=== PATIENT | male | born 2000 | race Caucasian/White ===

== ENCOUNTER 2021-10-28 20:34 | Emergency (ER) | payer OTHER, BC ==
[2021-10-28] MEDS ORDERED: SODIUM CHLORIDE 0.9% 1,000 ML IV STA (20:44)
[2021-10-28] MEDS ORDERED: HYDROmorphone 0.5 MG/0.5 ML SYRINGE IVP STA (20:44)
[2021-10-28] MEDS ORDERED: ONDANSETRON 4 MG/2 ML VIAL IVP STA (20:44)
[2021-10-28 21:06] LABS: Basophils # (A) 0.1 k/uL (0-0.2); Basophils % (A) 1 %; Eosinophils # (A) 0.1 k/uL (0-0.7); Eosinophils % (A) 1 %; HCT 45.7 % (39.0-53.0); HGB 15.2 gm/dL (13.0-17.5); Lymphocytes # (A) 2.2 k/uL (1.0-4.8); Lymphocytes % (A) 23 %; MCH 30.4 pg (25.0-35.0); MCHC 33.3 g/dL (31.0-37.0); MCV 91.2 fL (80.0-100.0); Mean Platelet Volume 8.1; Monocytes # (A) 0.5 k/uL (0-1.0); Monocytes % (A) 5 %; Neutrophils # (A) 6.6 k/uL (1.3-7.7); Neutrophils % (A) 68 %; Platelet Count 196 k/uL (150-450); RBC 5.01 m/uL (4.30-5.90); RDW 11.7 % (11.5-15.5); WBC 9.7 k/uL (4.0-11.0)
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
[2021-10-28 21:16] LABS: Partial Thromboplastin Time 23.2 sec (22.0-30.0); Prothrombin Time 11.1 sec (9.0-12.0)
[2021-10-28 21:18] LABS: ALT 27 U/L (4-49); AST 43 U/L (17-59); African American GFR (CKD) >90 (>60 ml/min/1.73 sqM); Albumin 4.5 g/dL (3.5-5.0); Alcohol <10 mg/dL; Alkaline Phosphatase 64 U/L (38-126); Anion Gap 8 mmol/L; Blood Urea Nitrogen 14 mg/dL (9-20); Calcium 9.3 mg/dL (8.4-10.2); Carbon Dioxide 24 mmol/L (22-30); Chloride 106 mmol/L (98-107); Glucose 108 mg/dL (74-99); Non-African American GFR(CKD) >90 (>60 ml/min/1.73 sqM); Potassium 3.4 mmol/L (3.5-5.1); Sodium 138 mmol/L (137-145); Total Bilirubin 1.2 mg/dL (0.2-1.3); Total Protein 7.3 g/dL (6.3-8.2)
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
[2021-10-29 04:04] VITALS: BP 141/84; PULSE 70; RESP 16; TEMP 98
== END 2021-10-28 22:30 | disposition other institution (70) ==
LOC: EC 20:34
DX: S81.011A Laceration without foreign body, right knee, initial encounter (principal); S36.039A Unspecified laceration of spleen, initial encounter; S20.219A Contusion of unspecified front wall of thorax, initial encounter; S27.329A Contusion of lung, unspecified, initial encounter; J94.8 Other specified pleural conditions; R79.89 Other specified abnormal findings of blood chemistry; V89.2XXA Person injured in unspecified motor-vehicle accident, traffic, initial encounter; Y92.410 Unspecified street and highway as the place of occurrence of the external cause
CPT/HCPCS: 36415; 93005; 86900; 86901; 80053; 83605; 84484; 85025; 85610; 85730; 86850; 80320; 72170; 73562; 71045; 72125; 70450; 71260; 74177; 99291; 96374; 96375; J2405; J1170; Q9967

== ENCOUNTER → 2024-07-03 | Outpatient (CLI) | payer BC ==
--- NOTE | 2024-07-06 23:15 | CT ---
EXAMINATION TYPE: CT soft tissue neck w con DATE OF EXAM: 07/03/2024 5:56 PM COMPARISON: None. CLINICAL INDICATION: Male, 23 years old with history of R590 LOCALIZED ENLARGED LYMPH NODES, Enlarged lymph nodes mainly on left side x3 weeks. TECHNIQUE: Axial images at 3 mm thick sections. Reconstructed images in the coronal plane and sagitt al plane are reviewed. Contrast used:100ml mL of Isovue 300 with IV Contrast, (none if empty) Oral contrast used: (none if empty) CT DLP: 294.6 mGycm, Automated exposure control for dose reduction was used. FINDINGS: Limited CT sections are obtained the lung apices. The lung apices appear clear. CT neck: The torus tubarius and fossa of Rosenmuller are normal. Casing Flusher spaces are normal. Small retention cysts within the right maxillary sinus. Significant mucosal thickening is not otherwise ev ident within the [id number]. Parotid glands appear normal and symmetrical. Submandibular glands, are normal. Parapharyngeal spac es are normal. No suspicious adenopathy is evident. At the level marked by the BB no discrete underlying mass is identified. This appears to lie near the angle of the jaw and parotid gland. The hypopharynx appears within normal limits. Vocal cord level appear symmetrical. Thyroid as visualized is normal. Osseous structures are normal. IMPRESSION: 1. Suspicious adenopathy is not identified.. No discrete mass to correlate with the patient's palpabl e marker identified. [facility], , 07/06/2024 11:13 PM
== END | disposition home or self-care (01) ==
LOC: RADCTMAIN 16:19
PROVIDERS: ATTEND Family Medicine
DX: R59.0 Localized enlarged lymph nodes (principal)
CPT/HCPCS: 70491; Q9967